=== PATIENT | female | born 1950 | race Caucasian/White ===

== ENCOUNTER 2016-09-14 15:01 | Emergency (ER) | payer BC ==
[~2016-09-14] VITALS: Ht 160 cm; Wt 70.0 kg
[~2016-09-14 15:01] MED LIST: ALENDRONATE70 MG PO; ANTIBIOTIC; AUGMENTIN875 MG PO; BENZONATATE200 MG PO; CELEXA40 MG PO; CHERATUSSIN OR; CIPRO500 MG PO; CITALOPRAM20 MG PO; CLARITHROMYC500 M1 PO; CLONAZEPAM0.5 MG PO; DILAUDID2 MG OR; DITROPAN5 MG; DITROPAN5 MG OR; DITROPAN5 MG PO; EFFEXOR XR37.5 MG PO; FLONASE NASAL50 MCG; GEODON20 MG OR; HYCODAN1 ML OR; HYDROCO/APAP1 T12 OR; LITHIUM CARB300 MG PO; MACRODANTIN100 MG PO; MUCINEX600 MG PO; NAPROXEN375 MG PO; NAPROXEN500 MG PO; NEURONTIN100 MG PO; PNEUMOVAX 23 IM; RISPERDAL0.5 MG PO; RISPERDAL2 MG; SEROQUEL XR150 MG PO; TESSALON200 MG PO; VAGIFEM10 MCG VA; VENLAFAXINE H37.5 MG PO; VENLAFAXINE37.5 M2 PO; VOLTAREN1 % EX; ZOSTAVAX IM
[2016-09-14] MEDS ORDERED: ATENOLOL25 MG PO (15:12)
[2016-09-14] MEDS ORDERED: GEODON60 MG PO (15:12)
[2016-09-14] MEDS ORDERED: MOTRIN800 MG PO (15:58)
[2016-09-14] MEDS ORDERED: FLEXERIL PO (15:58)
[2016-09-14 16:52] VITALS: BP 127/78
== END 2016-09-14 16:53 | disposition home or self-care (01) | DRG 563 ==
LOC: ED 15:01
DX: S39.012A Strain of muscle, fascia and tendon of lower back, initial encounter (principal); W01.0XXA Fall on same level from slipping, tripping and stumbling without subsequent striking against object, initial encounter; Y93.89 Activity, other specified; Y92.59 Other trade areas as the place of occurrence of the external cause